=== PATIENT | female | born 2005 | race Caucasian/White ===

== ENCOUNTER 2023-08-23 08:18 | Day surgery (SDC) | payer OTHER ==
[~2023-08-23] VITALS: Ht 157.5 cm; Wt 88.0 kg
--- NOTE | ~2023-08-23 | OR ---
[facility] [address], [place] [address] Draft DATE OF OPERATION: 08/23/2023 SURGEON: Alfred Asencio MD PREOPERATIVE DIAGNOSIS: Chronic tonsillitis, tonsil lithiasis. POSTOPERATIVE DIAGNOSIS: Chronic tonsillitis, tonsil lithiasis. PROCEDURE: Tonsillectomy. ANESTHESIA: General orotracheal; [place] FOX. PREOPERATIVE HISTORY: Estuardo is a 18-year-old young lady with chronic tonsillitis, tonsil lithiasis, multiple infections, taken to the operating room for the above-mentioned procedures. OPERATIVE PROCEDURE AND FINDINGS: After informed consent, the patient was taken to the operating room, placed in the supine position where general orotracheal anesthesia was induced. The patient and procedure were verified. The patient was repositioned. McIvor mouth gag placed into suspension. Headlight exam of the pharynx showed moderately hypertrophic cryptic tonsillolith tonsils. The left tonsil was grasped with a tenaculum, retracted medially, and removed from its fossa with mucosal sparing incision with Coblation. Tonsil was sent to pathology. The same procedure on the right tonsil. The mouth gag was released for several minutes. Reinspection showed no bleeding points. The pharynx was suctioned clear of blood and secretions. Mouth gag was removed. The patient was awakened, extubated, transported to recovery room in good condition. No complications. BLOOD LOSS: Minimal. SPECIMEN: To pathology. DRAINS: None. PATIENT NAME: ANJEL BEANANGELINE Glynn OPERATIVE REPORT DATE OF : 03 REPORT #: [id number] PHYSICIAN: ALFRED ASENCIO MD PCP: NO PRIMARY CARE PHYSICIAN REPORT IS CONFIDENTIAL AND NOT TO BE RELEASED WITHOUT AUTHORIZATION [address] [address] Draft Alfred Asencio MD /[facility] /[id number] Copies: ~ PATIENT NAME: VIKASESTUARDO Glynn OPERATIVE REPORT DATE OF : 03 REPORT #: [id number] PHYSICIAN: ALFRED ASENCIO MD PCP: NO PRIMARY CARE PHYSICIAN REPORT IS CONFIDENTIAL AND NOT TO BE RELEASED WITHOUT AUTHORIZATION
[~2023-08-23 08:18] MED LIST: IBLOOD GLUCOSE TEST STRIP 1 EA TEST VI PRN; LACTATED RINGER'S 1,000 ML IV SCH; LIDOCAINE HCL 1% 5 ML SDV INJ ONE; XULANE PATCH1 EACH TD
[2023-08-23] MEDS ORDERED: DEXAMETHASONE SOD PHOS 4 MG/ML VIAL ONE ×2 (08:26→08:27)
[2023-08-23] MEDS ORDERED: FAMOTIDINE 20 MG/ 2 ML VIAL ONE (08:26)
[2023-08-23] MEDS ORDERED: ondansetron HCL 4 MG/2 ML VIAL ONE (08:26)
[2023-08-23] MEDS ORDERED: LACTATED RINGER'S 1,000 ML IV ONE (08:26)
[2023-08-23] MEDS ORDERED: SUCCINYLCHOLINE IN 0.9% NACL 200 MG/10 ML SYRINGE ONE (08:26)
[2023-08-23] MEDS ORDERED: MIDAZOLAM HCL 2 MG/2 ML VIAL ONE (08:26)
[2023-08-23] MEDS ORDERED: KETOROLAC TROMETHAMINE 30 MG/ML VIAL ONE (08:26)
[2023-08-23] MEDS ORDERED: LIDOCAINE HCL 4% 5 ML AMP ONE (08:26)
[2023-08-23] MEDS ORDERED: propofoL 200 MG/20 ML VIAL ONE (08:26)
[2023-08-23] MEDS ORDERED: fentaNYL citrate 100 MCG/2 ML VIAL ONE (08:26)
[2023-08-23] MEDS ORDERED: METOCLOPRAMIDE HCL 10 MG/2 ML SDV ONE (08:26)
[2023-08-23] MEDS ORDERED: SEVOFLURANE 250 ML BTL ONE (08:30)
[2023-08-23 08:36] VITALS: BP 137/82
[2023-08-23] MEDS ORDERED: dexmedeTOMIDine HCl 200 MCG/2 ML VIAL ONE (10:13)
--- NOTE | 2023-08-23 10:58 | NUR ---
08/23/23 1058 Christa Sharma 1035 PT ARRIVED IN PACU NON RESPONSIVE TO NOXIOUS STIMULI WITH OPA IN PLACE. 1050 NO CHANGE IN PT STATUS.
[2023-08-23] MEDS ORDERED: PROCHLORPERAZINE EDISYLATE 10 MG/2 ML VIAL IV PRN (11:00)
[2023-08-23] MEDS ORDERED: ondansetron HCL 4 MG/2 ML VIAL IV PRN (11:00)
[2023-08-23] MEDS ORDERED: METOCLOPRAMIDE HCL 10 MG/2 ML SDV IV PRN (11:00)
[2023-08-23] MEDS ORDERED: MORPHINE SULFATE 10 MG/ML VIAL IV PRN (11:00)
[2023-08-23] MEDS ORDERED: fentaNYL citrate 50 MCG/ML SDV IV PRN (11:00)
[2023-08-23] MEDS ORDERED: droPERidol 5 MG/2 ML VIAL IV PRN (11:00)
[2023-08-23] MEDS ORDERED: IBLOOD GLUCOSE TEST STRIP 1 EA TEST VI PRN (11:00)
[2023-08-23] MEDS ORDERED: NALOXONE HCL 0.4 MG SYR IV PRN (11:00)
[2023-08-23 11:21] VITALS: BP 110/47
[2023-08-23] MEDS ORDERED: ACETA/HYDROCODONE 325/7.5 15 ML BTL PO PRN (11:30)
[2023-08-23 12:15] VITALS: BP 107/63
--- NOTE | 2023-08-23 13:05 | NUR ---
1115 PATIENT BACK TO ROOM 5. VITAL SIGNS COMPLETED. PATIENT BREATHING EQUAL AND UNLABORED. OXYGEN SATURATIONS ABOVE 90% ON ROOM AIR. PATIENT COMPLAINS OF 4/10 TOLERABLE. PATIENT DOES NOT WANT PAIN MEDICINE AT THIS TIME. 1202 PATIENT GIVEN PRN PAIN MEDICINE FOR 4/10 PAIN. PATIENT UP TO THE RESTROOM. PATIENT VOIDED 600 MLS OF CLEAR AND YELLOW URINE. 1215 PATIENT HAS MET DISCHARGE CRITIERA. IV D/C'D WNL. PATIENT DRESSED SELF TOLERATED IT WELL. PATIENT WHEELED OUT OF FACILITY.
--- NOTE | 2023-08-26 17:50 | PATH ---
[facility] [address], [place] [address] Signed SPECIMEN(S): A LEFT TONSIL SPECIMEN(S): B RIGHT TONSIL SPECIMEN SOURCE: A. LEFT TONSIL B. RIGHT TONSIL CLINICAL HISTORY: Chronic tonsillitis, tonsil lithiasis. Tonsillectomy. FINAL PATHOLOGIC DIAGNOSIS: A. 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 - Benign focal acute epithelial inflammation (tonsillitis). B. 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 - Benign focal acute epithelial inflammation (tonsillitis). JVR:[email or web address] MICROSCOPIC EXAMINATION: Histologic sections of all submitted blocks are examined by light microscopy. These findings, together with the gross examination, support the pathologic diagnosis. GROSS DESCRIPTION: A. The specimen, labeled and designated "Skinny, left tonsil," is received in formalin and consists of a dee-pink tonsil (2.8 x 2.0 x 1.8 cm). The tonsil is serially sectioned to reveal dee to red-brown convoluted cut surfaces with yellow-dee friable material within the tonsillar crypts. A tax representative section is submitted in cassette (A1). B. The specimen, labeled and designated "Skinny, right tonsil," is received in formalin and consists of a dee-pink tonsil (2.9 x 2.3 x 1.9 cm). The tonsil is inked blue, and serially sectioned to reveal dee to red-brown convoluted cut surfaces. A tax representative section is submitted in cassette (A1). VB (under the direct supervision of a pathologist) The Gross Description was prepared using a voice recognition system. The report was reviewed for accuracy; however, sound-alike word errors, addition and/or deletions may occur. If there is any PATIENT NAME: KAYLA BEAN PATHOLOGY DATE OF : 03 REPORT #: [id number] PHYSICIAN: [facility] PCP: NO PRIMARY CARE PHYSICIAN REPORT IS CONFIDENTIAL AND NOT TO BE RELEASED WITHOUT AUTHORIZATION [facility] [address], [place] [address] Signed question about this report, please contact Client Services. ADDITIONAL NOTES: Immunohistochemical and/or in situ hybridization studies if performed in this case included appropriate positive controls that reacted as expected. This test was developed and its performance characteristics determined by [facility]. It has not been cleared or approved by the U.S. Food and Drug Administration. The FDA has determined that such clearance or approval is not necessary. This test is used for clinical purposes. It should not be regarded as investigational or for research. [facility] is certified under the Clinical Laboratory Improvement Amendments of 1988 (CLIA) as qualified to perform high complexity clinical laboratory testing. PERFORMING LABORATORY: Technical component was performed by [facility], [address] [place] [id number] (CLIA# [id number]). Professional interpretation was performed by [facility], [address] [place] [id number] (CLIA#: [id number]). Diagnostician: Amol Bermeo MD Pathologist Electronically Signed 08/26/2023 Copies: ~ PATIENT NAME: KAYLA BEAN PATHOLOGY DATE OF : 03 REPORT #: [id number] PHYSICIAN: [facility] PCP: NO PRIMARY CARE PHYSICIAN REPORT IS CONFIDENTIAL AND NOT TO BE RELEASED WITHOUT AUTHORIZATION
== END 2023-08-23 12:15 | disposition home or self-care (01) ==
LOC: DS 08:18 → OPS 08:18 → DS 08:30 → OPS 08:30 → DS 09:30 → OPS 10:15
PROVIDERS: ATTEND Otolaryngology
PROC: 0CBPXZZ Excision of Tonsils, External Approach (ICD-10-PCS; principal; 2023-08-23 10:15)
DX: J35.01 Chronic tonsillitis (principal)
CPT/HCPCS: 00170; 84703; J0330; J1100; J1885; J2250; J2405; J2704; J2765; J3010; J7121